=== PATIENT | female | born 1975 | race Caucasian/White ===

== ENCOUNTER 2016-04-24 20:38 | Emergency (ER) | payer BC ==
--- NOTE | 2016-04-24 20:50 | UCPHY ---
H & P Patient Type: New HPI/ROS: HPI CHIEF COMPLAINT: Right elbow pain since Thursday HISTORY OF PRESENT ILLNESS: This patient very pleasant 40-year-old female denies any significant medical or surgical history except for endometriosis, she presents to the urgent care by private vehicle with her at bedside. They explained to me that she took a mechanical trip and fall at a friend's house and she was highly intoxicated with martinis. Her reports that she was intoxicated with alcohol she fell striking her right elbow into the tiled floor of her friends kitchen. She denies any other areas of injury. She does tell me this happened Thursday or 5 days ago. She has had ongoing pain but range of motion. She has been using arm. Past Medical History: Endometriosis Past Surgical History: Denies significant surgical history Social History: denies daily use of drugs alcohol tobacco products Family History: noncontributory ROS REVIEW OF SYSTEMS: A comprehensive 10 point review of systems is otherwise negative aside from elements mentioned in the history of present illness. Exam Constitutional triage nursing summary reviewed, vital signs reviewed, awake/ alert. Eyes normal conjunctivae and sclera, EOMI, PERRLA. HENT normal inspection, atraumatic, moist mucus membranes, no epistaxis, neck supple/ no meningismus, no raccoon eyes. Respiratory clear to auscultation bilaterally, normal breath sounds, no respiratory distress, no wheezing. Cardiovascular rate normal, regular rhythm, no murmur, no edema, distal pulses normal. Gastrointestinal soft, non-tender, no rebound, no guarding, normal bowel sounds, no distension, no pulsatile mass. Genitourinary no CVA tenderness. Musculoskeletal right arm: right arm is neurovascular intact she has good sensation, good cap refill, good asphalt dauber strength, good radial pulse, full range of motion of the fingers, hand, wrist, elbow she is tender to palpation over the olecranon of the elbow. There is some ecchymosis present. There is no significant swelling to the elbow. no midline vertebral tenderness, full range of motion, no calf swelling, no tenderness of extremities, no meningismus, good pulses, neurovascularly intact. Skin pink, warm, & dry, no rash, skin atraumatic. Neurologic awake, alert and oriented x 3, AAOx3, moves all 4 extremities equally, motor intact, sensory intact, CN II-XII intact, normal cerebellar, normal vision, normal speech. Psychiatric normal mood/affect. Heme/Lymph/Immune no lymphadenopathy. Differential Diagnosis: Includes but is not limited to in a particular order, elbow fracture, elbow contusion, soft tissue injury, joint effusion Medical Decision Making: This patient is having ongoing elbow pain for 5 days after striking against the tile floor. Patient had an x-ray of her right elbow to evaluate for fracture. Re-evaluation: ED x-ray right elbow: For few. I do not appreciate acute fracture however there is an anterior fat pad sign visualized. Patient be splinted in a posterior long-arm splint. Sling. Will need orthopedic follow-up. Mcarthur for pain control, ibuprofen for pain control. Patient understands and is agreeable for this she understands to follow up with Orthopedics outpatient. She is neurovascularly intact. Source: Patient - Personal History Tetanus Vaccine Date: 2011 - Family History Significant Family History: No pertinent family hx Constitutional: Initial Vital Signs Temperature (C) 36.7 C 04/24/16 20:50 Heart Rate 89 04/24/16 20:50 Respiratory Rate 16 04/24/16 20:50 Blood Pressure 125/86 H 04/24/16 20:50 O2 Sat (%) 97 04/24/16 20:50 O2 Delivery Mode Room Air Allergies/Adverse Reactions: erythromycin base [Erythromycin Base] Allergy (Unknown, Verified 04/24/16 20:59) Home Medications: Medication Instructions Recorded Hydrocodone/APAP 5/325 [[place] 1 - 2 tab PO Q4H PRN #10 tab 04/24/16 5/325] Ibuprofen [Motrin (*)] 800 mg PO Q6-8PRN #7 tab 04/24/16 Departure - Departure Disposition: Home, Routine, Self-Care Clinical Impression: Sprain of elbow, right Qualifiers: Encounter type: initial encounter Qualifier Code: (S53.401A) Unspecified sprain of right elbow, initial encounter Condition: Good Instructions: Arthralgia (ED), Swollen Joint (ED), Elbow Sprain (ED) Additional Instructions: 1. He will need to stay in your splint into further evaluated by Orthopedics. You will need to make appoint with Orthopedics who most likely need repeat x- rays and splint takedown. I do not see a big fracture on x-ray today however there is soft tissue swelling and joint effusion concerning for possible occult elbow fracture. Referrals: Marie Blas MD [Primary Care Provider] - As per Instructions Master Verma MD [Medical Doctor] - As per Instructions Prescriptions: Ibuprofen [Motrin (*)] 800 mg PO Q6-8PRN #7 tab Hydrocodone/APAP 5/325 [[place] 5/325] 1 - 2 tab PO Q4H PRN #10 tab PRN Reason: Pain, Moderate - PQRS PQRS Measurement: n/a
[2016-04-24 21:15] VITALS: BP 125/86; PULSE 89; RESP 16; TEMP 98.1; O2SAT 97
--- NOTE | 2016-04-24 21:23 | DX ---
Right Elbow 4 Views. Reason for examination: Pain following trauma. Findings: A fracture is not identified. The bone alignment is normal. The soft tissues are unremarkab le. Impression: Negative for fracture.
== END 2016-04-24 21:58 | disposition home or self-care (01) ==
LOC: CED 20:38
PROC: 2W38X1Z Immobilization of Right Upper Extremity using Splint (ICD-10-PCS; principal; 2016-04-24)
DX: S53.401A Unspecified sprain of right elbow, initial encounter (principal); W01.0XXA Fall on same level from slipping, tripping and stumbling without subsequent striking against object, initial encounter; Y92.012 Bathroom of single-family (private) house as the place of occurrence of the external cause; Y99.8 Other external cause status
CPT/HCPCS: 73080-PO; G0463-PO